=== PATIENT | male | born 2000 | race Two or more races ===

== ENCOUNTER 2021-01-19 14:23 | Emergency (ER) | payer MEDICAID ==
--- NOTE | 2021-01-19 15:05 | EDM.PDOC ---
ED HPI GENERAL MEDICAL PROBLEM - General Chief Complaint: Chest Pain Stated Complaint: CHEST PAIN, TIGHTNESS IN THE ARM AND CHEST Time Seen by Provider: 01/19/21 14:50 Source of Information: Reports: Patient History Limitations: Reports: No Limitations - History of Present Illness INITIAL COMMENTS - FREE TEXT/NARRATIVE: Patient works in the [employer]. He states he awoke in his usual state of health. He had an energy drink that he does every day and went to work. 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 It lasted 5-10 minutes and then went away. He continued to work, no return of the pain. Never had anything like this before. No recent trauma, no unusual physical activity, no recent illness, no sick contacts. No cardiac history. Not had covid or his vaccination - Related Data Allergies Allergy/AdvReac Type Severity Reaction Status Date / Time No Known Allergies Allergy Verified 01/19/21 14:50 Social & Family History - Tobacco Use Tobacco Use Status *Q: Never Tobacco User - Alcohol Use Alcohol Use History: Yes Alcohol Use in Last Twelve Months: Yes Alcohol Use Frequency: Socially - Recreational Drug Use Recreational Drug Use: No Drug Use in Last 12 Months: No ED ROS GENERAL - Review of Systems Review Of Systems: See Below Constitutional: Reports: No Symptoms. Denies: Fever, Chills, Diaphoresis, Weight Loss HEENT: Reports: No Symptoms. Denies: Rhinitis, Sinus Problem, Throat Pain, Throat Swelling, Vision Change Respiratory: Reports: No Symptoms. Denies: Shortness of Breath, Wheezing, Cough, Sputum Cardiovascular: Reports: Chest Pain (left chest, sharp for 10 minutes earlier today) GI/Abdominal: Reports: No Symptoms. Denies: Abdominal Pain, Diarrhea, Nausea, Vomiting : Reports: No Symptoms Musculoskeletal: Reports: No Symptoms Skin: Reports: No Symptoms Neurological: Reports: Tingling (to the left arm for 10 minutes at 11:30 today) Psychiatric: Reports: No Symptoms Hematologic/Lymphatic: Reports: No Symptoms Immunologic: Reports: No Symptoms ED EXAM, GENERAL - Physical Exam Exam: See Below Exam Limited By: No Limitations General Appearance: Alert, WD/WN, No Apparent Distress Eye Exam: Bilateral Eye: EOMI, Normal Inspection, PERRL Nose: Normal Inspection, Normal Mucosa Throat/Mouth: Normal Inspection, Normal Lips, Normal Teeth, Normal Voice Head: Atraumatic Neck: Normal Inspection, Supple, Non-Tender Respiratory/Chest: No Respiratory Distress, Lungs Clear, Normal Breath Sounds, Chest Non-Tender, Other (no chest pain to palpation) Cardiovascular: Regular Rate, Rhythm, Tachycardia GI/Abdominal: Normal Bowel Sounds, Soft, Non-Tender, No Abnormal Bruit Back Exam: Normal Inspection, Full Range of Motion Extremities: Normal Inspection, Normal Range of Motion, Non-Tender, No Pedal Edema, Normal Capillary Refill Neurological: Alert, Oriented, CN II-XII Intact, Normal Cognition, No Motor/Sensory Deficits Psychiatric: Normal Affect Skin Exam: Warm #1 Interpretation EKG Date: 01/19/21 Time: 14:26 Rhythm: NSR Rate (Beats/Min): 100 [place]: Normal P-Wave: Present QRS: Normal ST-T: Normal QT: Normal Comparison: NA - No Prior EKG Course - Vital Signs Last Recorded V/S: Last Vital Signs Temp 35.2 C L 01/19/21 15:09 Pulse 108 H 01/19/21 15:17 Resp 18 01/19/21 15:17 BP 162/80 H 01/19/21 15:17 Pulse Ox 96 01/19/21 15:17 - Orders/Labs/Meds Orders: Active Orders 24 hr Category Date Time Status Cardiac Monitoring [RC] . DIRECTED Care 01/19/21 14:44 Active Labs: Laboratory Tests 01/19/21 01/19/21 01/19/21 Range/Units 15:02 15:02 15:02 WBC 7.7 (4.0-10.0) x10^3/uL RBC 5.37 (4.5-6.0) x10^6/uL Hgb 15.5 (14.0-18.0) g/dL Hct 44.8 (40.0-52.0) % MCV 83.4 (78.0-93.0) fL MCH 28.9 (26.0-32.0) pg MCHC 34.6 (32.0-36.0) g/dL RDW Coeff of Lashae 12.5 (10.0-15.0) % Plt Count 240 (130-400) x10^3/uL Immature Gran % (Auto) 0.10 (0.00-0.43) % Neut % (Auto) 65.5 (50.0-80.0) % Lymph % (Auto) 26.7 (25.0-50.0) % Gonzales % (Auto) 6.5 (2.0-11.0) % Eos % (Auto) 0.7 (0.0-4.0) % Baso % (Auto) 0.5 (0.2-1.2) % Neut # (Auto) 5.0 (1.8-7.7) x10^3/uL Lymph # (Auto) 2.0 (1.0-4.8) x10^3/uL Gonzales # (Auto) 0.5 (0.0-0.8) x10^3/uL Eos # (Auto) 0.1 (0.0-0.5) x10^3/uL Baso # (Auto) 0.0 (0.0-0.2) x10^3/uL Immature Gran # (Auto) 0.01 (0.00-0.07) x10^3/uL D-Dimer, Quantitative < 0.19 (<=0.58) mg/LFEU Sodium 142 (136-145) mmol/L Potassium 3.5 (3.5-5.1) mmol/L Chloride 102 (98-107) mmol/L Carbon Dioxide 30 (21-32) mmol/L Anion Gap 13.5 (5-15) mmol/L BUN 14 (7-18) mg/dL Creatinine 0.8 (0.70-1.30) mg/dL Est Cr Clr Drug Dosing 156.88 mL/min Estimated GFR (MDRD) > 60 Glucose 121 H (70-99) mg/dL Calcium 8.9 (8.5-10.1) mg/dL Corrected Calcium 8.9 (8.5-10.1) mg/dL Total Bilirubin 0.5 (0.2-1.0) mg/dL AST 44 H (15-37) U/L ALT 88 H (16-63) U/L Alkaline Phosphatase 58 (46-116) U/L Troponin I High Sens < 4 (<=76) ng/L Total Protein 7.9 (6.4-8.2) g/dL Albumin 4.0 (3.4-5.0) g/dL Globulin 3.9 Albumin/Globulin Ratio 1.03 SARS-CoV-2 RNA (VALERIE) (NEGATIVE) 01/19/21 Range/Units 15:05 WBC (4.0-10.0) x10^3/uL RBC (4.5-6.0) x10^6/uL Hgb (14.0-18.0) g/dL Hct (40.0-52.0) % MCV (78.0-93.0) fL MCH (26.0-32.0) pg MCHC (32.0-36.0) g/dL RDW Coeff of Lashae (10.0-15.0) % Plt Count (130-400) x10^3/uL Immature Gran % (Auto) (0.00-0.43) % Neut % (Auto) (50.0-80.0) % Lymph % (Auto) (25.0-50.0) % Gonzales % (Auto) (2.0-11.0) % Eos % (Auto) (0.0-4.0) % Baso % (Auto) (0.2-1.2) % Neut # (Auto) (1.8-7.7) x10^3/uL Lymph # (Auto) (1.0-4.8) x10^3/uL Gonzales # (Auto) (0.0-0.8) x10^3/uL Eos # (Auto) (0.0-0.5) x10^3/uL Baso # (Auto) (0.0-0.2) x10^3/uL Immature Gran # (Auto) (0.00-0.07) x10^3/uL D-Dimer, Quantitative (<=0.58) mg/LFEU Sodium (136-145) mmol/L Potassium (3.5-5.1) mmol/L Chloride (98-107) mmol/L Carbon Dioxide (21-32) mmol/L Anion Gap (5-15) mmol/L BUN (7-18) mg/dL Creatinine (0.70-1.30) mg/dL Est Cr Clr Drug Dosing mL/min Estimated GFR (MDRD) Glucose (70-99) mg/dL Calcium (8.5-10.1) mg/dL Corrected Calcium (8.5-10.1) mg/dL Total Bilirubin (0.2-1.0) mg/dL AST (15-37) U/L ALT (16-63) U/L Alkaline Phosphatase (46-116) U/L Troponin I High Sens (<=76) ng/L Total Protein (6.4-8.2) g/dL Albumin (3.4-5.0) g/dL Globulin Albumin/Globulin Ratio SARS-CoV-2 RNA (VALERIE) Negative (NEGATIVE) - Radiology Interpretation Free Text/Narrative:: chest x-ray with no acute process - Re-Assessments/Exams Free Text/Narrative Re-Assessment/Exam: 01/19/21 15:07 Patient with chest pain with radiation to the left arm at 11:30 today Will check labs, chest x-ray, ddimer, trop, covid. ekg with tachycardia but no other changes. no pain now 01/19/21 15:54 Patient continued to be chest pain free. advised testing was negative. will stop the energy drinks and follow up with PCP Departure - Departure Time of Disposition: 15:55 Disposition: Home, Self-Care 01 Clinical Impression: Chest pain, Tachycardia Instructions: Nonspecific Chest Pain, Adult, Sinus Tachycardia Forms: ED Department Discharge Additional Instructions: Try to avoid energy drinks and caffiene. Follow up with your primary care for continued chest pain and elevated heart rate Sepsis Event Note (ED) - Focused Exam Vital Signs: Vital Signs Temp Pulse Resp BP Pulse Ox 01/19/21 15:17 108 H 18 162/80 H 96 01/19/21 15:09 35.2 C L 113 H 20 155/100 H 95 - My Orders Last 24 Hours: My Active Orders 01/19/21 14:44 Cardiac Monitoring [RC] . DIRECTED - Assessment/Plan Last 24 Hours: My Active Orders 01/19/21 14:44 Cardiac Monitoring [RC] . DIRECTED
--- NOTE | 2021-01-19 15:23 | CR ---
[id number] RAD/RAD Chest PA And Lateral EXAM: RAD Chest PA And Lateral CLINICAL DATA: CHEST PAIN COMPARISON: No previous similar exam is available. FINDINGS: The lungs are clear. The cardiomediastinal contour is normal. The regional bones and soft tissues are unremarkable. Scoliosis is seen IMPRESSION: NO ACUTE PROCESS. Mehdi Villatoro MD 01/19/21 [id number] Thank you for allowing us to participate in the care of your patient.
[2021-01-19 15:27] LABS: CHLORIDE,CL 102 mmol/L (98-107); SODIUM,NA 142 mmol/L (136-145)
[2021-01-19 15:30] LABS: ANION GAP 13.5 mmol/L (5-15)
== END 2021-01-19 16:01 | disposition home or self-care (01) ==
LOC: VM.ED 14:23
DX: R07.9 Chest pain, unspecified (principal); R00.0 Tachycardia, unspecified; Z20.822 Contact with and (suspected) exposure to COVID-19
CPT/HCPCS: 36415; 71046; 80053; 84484; 85025; 85379; 93010; 99284; 99285-25; U0002